=== PATIENT | female | born 1970 | race Hispanic/Latino ===

== ENCOUNTER 2018-10-26 15:46 | Emergency (ER) | payer SELFPAY ==
[2018-10-26] MEDS ORDERED: Lorazepam 1 MG TAB ONE (16:03)
== END 2018-10-26 17:30 | disposition home or self-care (01) ==
LOC: ERS 15:46
DX: S00.81XA Abrasion of other part of head, initial encounter (principal); I12.9 Hypertensive chronic kidney disease with stage 1 through stage 4 chronic kidney disease, or unspecified chronic kidney disease; N18.2 Chronic kidney disease, stage 2 (mild); B19.20 Unspecified viral hepatitis C without hepatic coma; F41.9 Anxiety disorder, unspecified; F20.9 Schizophrenia, unspecified; F31.9 Bipolar disorder, unspecified; F17.210 Nicotine dependence, cigarettes, uncomplicated; Y04.0XXA Assault by unarmed brawl or fight, initial encounter
CPT/HCPCS: 99283

== ENCOUNTER 2021-05-30 13:46 | Emergency (ER) | payer SELFPAY | END 2021-05-30 15:10 | LOC: EEVIPCON 13:46 → ERS 13:46 | DX: S01.81XA Laceration without foreign body of other part of head, initial encounter (principal); F43.0 Acute stress reaction; F41.9 Anxiety disorder, unspecified; I12.9 Hypertensive chronic kidney disease with stage 1 through stage 4 chronic kidney disease, or unspecified chronic kidney disease; N18.2 Chronic kidney disease, stage 2 (mild); R60.0 Localized edema; F17.210 Nicotine dependence, cigarettes, uncomplicated; W22.8XXA Striking against or struck by other objects, initial encounter | CPT/HCPCS: 12011; 93005 ==

== ENCOUNTER 2021-07-18 06:04 | Inpatient (IN) | payer OTHER, SELFPAY ==
[2021-07-18] MEDS ORDERED: Labetalol HCl 100 MG/20 ML VIAL ONE (06:34)
[2021-07-18 07:06] LABS: #Basophils 0.1 thou/uL (0.0-0.2); #Eosinphils 0.1 thou/uL (0.0-0.7); #Lymphocytes 1.8 thou/uL (1.20-3.40); #Monocytes 0.7 thou/uL (0.11-0.59); #Neutrophils 7.7 thou/uL (1.40-6.50); %Basophils 0.5 % (0.0-1.0); %Eosinophils 0.6 % (0.0-10.0); %Lymphocytes 17.6 % (21.0-51.0); %Monocytes 6.6 % (0.0-10.0); %Neutrophils 74.8 % (42.0-75.0); Hemoglobin 13.8 g/dL (12.0-16.0); Mean Corpuscular HGB CONC 33.1 g/dL (32.0-36.0); Mean Corpuscular Volume 90.6 fL (78.0-98.0); Mean Platelet Volume 8.2 fL (7.4-10.4); Platelet Count 309 thou/uL (130-400); RBC Distribution Width 13.3 % (11.5-14.5); White Blood Cell (WBC) Count 10.3 thou/uL (4.8-10.8)
[2021-07-18 07:15] LABS: BHCG - Serum Negative (NEGATIVE); Pregs Control Background? CLEAR/WHITE (CLR/WHITE); Pregs Control Bar Appear? YES (CONTROL BAR)
[2021-07-18 07:24] LABS: Acetaminophen Less than 6.0 mcg/mL (10.0-30.0); Alcohol Less than 10 mg/dL (Less than 10); Salicylate Less than 8.0 mg/dL (15.0-30.0)
[2021-07-18 07:25] LABS: ALT (SGPT) 27 U/L (8-55); AST (SGOT) 22 U/L (5-34); Alkaline Phosphatase 84 U/L (40-110); Anion Gap 14 mmol/L (10-20); BUN (Urea Nitrogen) 14 mg/dL (7.0-18.7); Bilirubin, Total 0.3 mg/dL (0.2-1.2); Calc. Creatinine Clearance 0 mL/min (70-130); Calcium 9.1 mg/dL (7.8-10.44); Carbon Dioxide 22 mmol/L (22-29); Chloride 105 mmol/L (98-107); Globulin 3.3 g/dL (2.4-3.5); Glucose 103 mg/dL (70-105); Potassium 3.8 mmol/L (3.5-5.1); Protein, Total 7.3 g/dL (6.0-8.3); Sodium 137 mmol/L (136-145)
[2021-07-18] MEDS ORDERED: Lorazepam 2 MG/ML VIAL ONE ×2 (08:06→16:42)
[2021-07-18 10:21] LABS: Bilirubin Negative (Negative); Blood, Urine Negative (Negative); Clarity Turbid (Clear); Glucose, Urine (Dipstick) Normal (Negative); Ketone, Urine Trace mg/dL (Negative); Leukocyte Negative Leu/uL (Negative); Nitrite Negative (Negative); Protein, Urine (Dipstick) Negative (Neg-Trace); Specific Gravity, Urine 1.022 (1.002-1.036); Urobilinogen Normal mg/dL (Less than 2)
[2021-07-18 10:28] LABS: Amphetamine Detected (NotDetected); Barbiturates Screen Not Detected (NotDetected); Benzodiazepine Screen Not Detected (NotDetected); Cocaine Metabolite Screen Not Detected (NotDetected); Methadone Not Detected (NotDetected); Methamphetamine Detected (NotDetected); Opiate Screen Not Detected (NotDetected); Oxycodone Screen Not Detected (NotDetected); Phencyclidine (PCP) Not Detected (NotDetected); THC/Cannabinoid Screen Not Detected (NotDetected); Tricyclic Screen Not Detected (NotDetected)
[2021-07-18] MEDS ORDERED: Ondansetron ODT 4 MG TAB PO PRN (12:53)
[2021-07-18] MEDS ORDERED: Bisacodyl 10 MG SUPP PR PRN (12:53)
[2021-07-18] MEDS ORDERED: Lorazepam 2 MG/ML VIAL SLOW IVP PRN (13:03)
[2021-07-18] MEDS ORDERED: Ziprasidone 20 MG VIAL IM PRN (15:38)
[2021-07-18] MEDS ORDERED: hydrALAZINE 20 MG/ML VIAL SLOW IVP PRN (15:50)
[2021-07-18] MEDS ORDERED: Famotidine/PF 20 mg/2ml Vial ONE (16:34)
[2021-07-18] MEDS ORDERED: Nicotine 14 MG PATCH ONE (16:34)
[2021-07-18] MEDS: Labetalol HCl 100 MG/20 ML VIAL SLOW IVP PRN (16:46)
[2021-07-18] MEDS: Famotidine/PF 20 mg/2ml Vial SLOW IVP SCH (16:47)
[2021-07-18] MEDS: Nicotine 14 MG PATCH TD SCH (16:47)
[2021-07-18 17:42] LABS: SARS-CoV-2 NAA Rapid Test Not Detected (NotDetected)
[2021-07-18 20:04] VITALS: BMI 42.7
[2021-07-18] MEDS ORDERED: Acetaminophen 325 MG TAB PO PRN (20:15)
[2021-07-18] MEDS ORDERED: Sodium Chloride 0.9% 1,000 ML IV SCH (20:15)
[2021-07-19 05:26] LABS: #Basophils 0.1 thou/uL (0.0-0.2); #Eosinphils 0.1 thou/uL (0.0-0.7); #Lymphocytes 1.9 thou/uL (1.20-3.40); #Monocytes 0.8 thou/uL (0.11-0.59); %Basophils 0.7 % (0.0-1.0); %Eosinophils 1.4 % (0.0-10.0); %Lymphocytes 21.5 % (21.0-51.0); %Monocytes 9.2 % (0.0-10.0); %Neutrophils 67.2 % (42.0-75.0); Hemoglobin 12.9 g/dL (12.0-16.0); Mean Corpuscular HGB CONC 33.4 g/dL (32.0-36.0); Mean Corpuscular Hemoglobin 30.4 pg (27.0-31.0); Mean Corpuscular Volume 90.9 fL (78.0-98.0); Mean Platelet Volume 7.9 fL (7.4-10.4); Platelet Count 293 thou/uL (130-400); Red Blood Cell (RBC) Count 4.24 mill/uL (4.20-5.40); White Blood Cell (WBC) Count 8.9 thou/uL (4.8-10.8)
[2021-07-19 05:47] LABS: Anion Gap 11 mmol/L (10-20); BUN (Urea Nitrogen) 8 mg/dL (7.0-18.7); Calc. Creatinine Clearance 129 mL/min (70-130); Calcium 8.5 mg/dL (7.8-10.44); Carbon Dioxide 24 mmol/L (22-29); Chloride 104 mmol/L (98-107); Glucose 94 mg/dL (70-105); Potassium 3.5 mmol/L (3.5-5.1); Sodium 135 mmol/L (136-145)
[2021-07-19] MEDS: Nicotine 14 MG PATCH TD SCH (12:06)
[2021-07-19] MEDS: Labetalol HCl 100 MG/20 ML VIAL SLOW IVP PRN ×2 (12:06→16:35)
[2021-07-19] MEDS: Famotidine/PF 20 mg/2ml Vial SLOW IVP SCH (12:06)
[2021-07-19] MEDS ORDERED: Lisinopril 10 MG TAB PO SCH (18:45)
[2021-07-19] MEDS ORDERED: Amlodipine 10 MG TAB PO SCH (18:45)
[2021-07-19] MEDS: Lisinopril 5 MG TAB PO SCH (21:28)
[2021-07-19] MEDS: Nitroglycerin 2% Ointment 1 INCH/1 GM Packet TOP SCH (21:29)
[2021-07-19] MEDS: Acetaminophen 325 MG TAB PO PRN (23:12)
[2021-07-20 04:42] VITALS: TEMP 97.8
[2021-07-20] MEDS: Nitroglycerin 2% Ointment 1 INCH/1 GM Packet TOP SCH (06:17)
[2021-07-20] MEDS ORDERED: Amlodipine 10 MG TAB PO SCH (09:00)
[2021-07-20] MEDS: Lisinopril 5 MG TAB PO SCH (09:09)
[2021-07-20] MEDS: Acetaminophen 325 MG TAB PO PRN (09:11)
[2021-07-20 12:12] VITALS: BP 130/81
== END 2021-07-20 12:05 | DRG 917 ==
LOC: ERS 06:04 → ERHOLD 12:54 → EEVIPCON 12:54 → 3SE 18:22 → OBSVTOIN 07-19 17:45
PROVIDERS: ADMIT Family Medicine; ATTEND Internal Medicine
DX: T43.621A Poisoning by amphetamines, accidental (unintentional), initial encounter (principal); G92 Toxic encephalopathy; Z68.41 Body mass index [BMI] 40.0-44.9, adult; N17.9 Acute kidney failure, unspecified; I16.0 Hypertensive urgency; Z20.822 Contact with and (suspected) exposure to COVID-19; E86.0 Dehydration; F17.210 Nicotine dependence, cigarettes, uncomplicated; B19.20 Unspecified viral hepatitis C without hepatic coma; F31.9 Bipolar disorder, unspecified; E66.9 Obesity, unspecified; N18.2 Chronic kidney disease, stage 2 (mild); E11.22 Type 2 diabetes mellitus with diabetic chronic kidney disease; F20.9 Schizophrenia, unspecified; F41.9 Anxiety disorder, unspecified; I12.9 Hypertensive chronic kidney disease with stage 1 through stage 4 chronic kidney disease, or unspecified chronic kidney disease; F12.10 Cannabis abuse, uncomplicated; F15.10 Other stimulant abuse, uncomplicated; F44.5 Conversion disorder with seizures or convulsions; Z71.6 Tobacco abuse counseling; Z88.8 Allergy status to other drugs, medicaments and biological substances; Z91.14 Patient's other noncompliance with medication regimen; Z90.710 Acquired absence of both cervix and uterus
CPT/HCPCS: 36415; 36416; 70450; 80048; 80053; 80306; 80307; 81003; 84146; 84484; 84703; 85025; 93005; 95816; 95819; 95957; 96375; 96376; G0378; J0360; J2060; S0028; U0002

== ENCOUNTER 2021-07-23 00:32 | Emergency (ER) | payer OTHER, SELFPAY ==
[2021-07-23] MEDS ORDERED: Ondansetron ODT 8 MG TAB ONE (00:54)
[2021-07-23] MEDS ORDERED: Sucralfate 1 GM/10 ML UDCUP ONE (00:54)
[2021-07-23] MEDS ORDERED: Famotidine 20 MG TAB ONE (02:32)
== END 2021-07-23 02:35 | disposition home or self-care (01) ==
LOC: ERS 00:32
DX: R11.2 Nausea with vomiting, unspecified (principal); R07.9 Chest pain, unspecified; I10 Essential (primary) hypertension; F17.210 Nicotine dependence, cigarettes, uncomplicated
CPT/HCPCS: 71045; 93005; Q0162